=== PATIENT | male | born 1955 | race Caucasian/White ===

== ENCOUNTER 2016-08-01 12:21 | Outpatient (CLI) | payer OTHER, MEDICAID ==
[2014-12-01 19:45] VITALS: BP 120/68
--- NOTE | 2016-08-01 14:47 | PAIN CLINIC PROGRESS NOTES ---
REASON FOR VISIT: Byron follows up with me today. He had marked 100% immediate improvement following a facet medial branch block on the left side of L3, L4, L5, and sacral ala and sacroiliac joint injection. He says that the back pain returned after about 3 days and that he has primary back pain but he does feel achiness and numbness in the left leg, particularly when he wakes up in the morning. He has been using the Butrans patch. He was previously on Percocet. He did not tolerate the Percocet medication and I am trying to wean him off of schedule II opiates and therefore, a buprenorphine partial agonist is a much safer medication to use in this gentleman; and therefore, I would like to advance his dose today to a 20 mcg patch and avoid the use of hydrocodone. At this point, he is looking for nonsurgical options as he does have some recurrent stenosis at L3-L4 and I have recommended a radiofrequency neurolysis, which he is in agreement to from L3 to S3 with anesthesia sedation. I have also given him information on a [facility] [facility] neurostimulator. He is in agreement today and we will proceed next month upon follow up. ASSESSMENT: 1. Lumbar spondylosis. 2. History of L4-L5 and L5-S1 fusion. 3. Recurrent stenosis of L3-L4. MTDD
== END 2016-08-01 12:41 ==
LOC: OUT 12:21
PROVIDERS: ATTEND Anesthesiology Pain Medicine
DX: M47.816 Spondylosis without myelopathy or radiculopathy, lumbar region (principal); M48.07 Spinal stenosis, lumbosacral region
CPT/HCPCS: 99213; G0463

== ENCOUNTER 2016-09-19 08:50 | Outpatient (CLI) | payer OTHER, MEDICAID ==
[2014-12-01 19:45] VITALS: BP 120/68
[~2016-09-19 08:50] MED LIST: BUPIVACAINE HCL/PF 2.5 MG/ML 10ML VIAL IV ONE; KETAMINE HCL 200 MG/20 ML VIAL ONE; LIDOCAINE HCL/PF 2% 100 MG/5 ML VIAL IJ ONE; NORMAL SALINE 500 ML IV.SOLN IV ONE; PROPOFOL 500 MG/50 ML VIAL IV ONE; SALINE FLUSH 10 ML DISP.SYRIN IVF ONE; TRIAMCINOLONE ACETONID 40MG/ML VIAL ONE
--- NOTE | 2016-09-19 11:54 | GENERIC FACET RF ---
SUBJECTIVE: I had the opportunity of seeing Leif Darling today as an outpatient in clinic. This is a 61-year-old gentleman with lumbosacral back pain and lumbar spondylosis who presented with focal left-sided back pain. I placed facet medial branch blocks and a sacroiliac joint injection and his symptoms nearly completely improved. He rated his pain better than 90% improved following the injections. He comes back today for radiofrequency neurolysis of the sacrum and the lower lumbar facets. Multiple levels were necessary because of the widespread pain pattern over both the lumbar facet joints and his sacroiliac joints. I did discuss bone marrow aspirate concentrate therapy as well. He is having some pain on the right lumbosacral spine at this point which is more of a new onset. We have changed him on to a Butrans patch at 20 mcg and he says this is controlling his pain not completely, but he seems content with the current therapy on the non-potent opioid. Plan today for a lumbar facet and sacral radiofrequency neurolysis. We will obtain monitored anesthesia care because of the degree of back pain that he has been suffering with and his intolerance to the previous injections. ANESTHESIA: Monitored anesthesia care. ANESTHESIOLOGIST: Mimi Marshall. PROCEDURE: L3, L4, L5, and sacral ala and S1, S2, S3 lumbosacral facet radiofrequency neurolyses with fluoroscopic guidance (neurolyses of 4 medial nerve branches and 3 sacral nerves). DESCRIPTION OF PROCEDURE: The risks and benefits of the procedure were explained to the patient including the risk of infection, bleeding and unintended nerve injury, including the risk of radicular motor or sensory nerve injury and increased pain following the procedure. In addition, the risk of steroid exposure causing hyperglycemia, hypertension, osteoporosis, and increased infectious risks were explained to the patient. The patient understood these risks and agreed to proceed. The patient was placed in the prone position on the fluoroscopy table. The low back was cleaned and sterile drapes were applied. AP, lateral and oblique fluoroscopic views were obtained of the lumbar spine. An oblique fluoroscopic view was obtained of the left L3 lumbar vertebral body and spinous process. A 10 centimeter RFK introducer needle with a 10 mm active tip was advanced under direct fluoroscopic guidance until the tip of the introducer needle was located parallel to the medial branch of the posterior nerve root supplying the facet joint. This location was at the junction of the left transverse process of L3 with the superior articulating process. It was verified that there was no aspiration of CSF or blood from the needle tip. AP and lateral fluoroscopic views were obtained to verify the position of the needle as located at the junction of the transverse process and superior articulating process and to verify that the needle tip was not located within the epidural or intrathecal space. A 10 centimeter RFK radiofrequency probe was then introduced via the introducer needle and a 2 Hz stimulus was effected, gradually increasing the voltage to 2.5 volts, to verify that there was no motor neuron activation causing significant muscle contraction in the lower extremity or back. The probe was then removed from the introducer needle and Omnipaque 180 myelogram dye was injected through the needle and it was verified that the dye was located at the junction of the transverse process and superior articulating process. Furthermore, it was verified that the dye was not located within the epidural space or intrathecal space or intravascular space. Lastly, it was verified that the dye was not located within the paraspinous musculature. Triamcinolone acetate diluted in 2% lidocaine and 0.25% bupivacaine was then injected through the introducer needle. The probe was reintroduced into the needle. A radiofrequency lesion was then effected at a temperature of 80 degrees for a period of 60 seconds. The needle was then rotated 180 degrees and withdrawn approximately 3 mm and a second lesion was effected for a period of 60 seconds at a temperature of 80 degrees C. The stylet was replaced in the introducer needle and the introducer was removed from the back. This exact same procedure was repeated at the following levels: Left L4, L5, sacral ala and S1, S2, and S3 medial branch branch neurolysis. At this point, attention was then directed to the right side and an injection in the iliolumbar ligament with triamcinolone and 0.25% bupivacaine mixed with 2 % lidocaine was placed. Bandages were applied over the injection sites. The patient tolerated the procedure well. There were no apparent complications. He was taken to recovery room in good condition. The patient was monitored for 20 minutes following the injection, during which time the patient experienced no adverse sequelae. The patient was discharged home in good condition with a helper driver. ASSESSMENT: Lumbar spondylosis/facet arthropathy. FOLLOWUP: Return to clinic if problems develop or worsen. DYANA
== END 2016-09-19 08:52 ==
LOC: OUT 08:50
PROVIDERS: ATTEND Anesthesiology Pain Medicine
DX: M47.816 Spondylosis without myelopathy or radiculopathy, lumbar region (principal)
CPT/HCPCS: J2001; J2704; J3301; J3490; J7060; 64635; 64636; 99214; G0463; S1016